=== PATIENT | male | born 1940 ===

== ENCOUNTER 2018-07-24 09:42 | Outpatient (CLI) | payer MEDICARE, MEDICAID | END 2018-07-24 09:43 | disposition home or self-care (01) | LOC: C.RADH 09:42 ==

== ENCOUNTER 2018-08-03 10:27 | Inpatient (IN) | payer MEDICARE, MEDICAID ==
[2018-04-06 12:58] VITALS: BMI 27.4
[2018-08-03] MEDS ORDERED: HYDROmorphone 0.5 mg/0.5 ml ISec IVP PRN ×2 (16:19→19:07)
[2018-08-03] MEDS ORDERED: Lidocaine 2% Jelly (Uro-Jet) ONE (17:33)
[2018-08-03] MEDS ORDERED: Ciprofloxacin 400mg/200ml D5W 400 MG/200 ML BAG IVPB ONE (17:33)
[2018-08-03] MEDS ORDERED: Gentamicin 80 mg in 0.9% NS 160 MG/200 ML BAG IVPB ONE (17:33)
[2018-08-03] MEDS ORDERED: Propofol 10 mg/ml Inj (20 ML) ONE (17:34)
[2018-08-03] MEDS ORDERED: ePHEDrine 50 mg/ml Inj ONE (17:44)
[2018-08-03] MEDS ORDERED: Lactated Ringer's 1,000 ML IV ONE (19:05)
--- NOTE | 2018-08-03 19:12 | PCM.SURG1 ---
Surgeon's Initial Post Op Note - Surgeon's Notes Surgeon: jamey [employer] Gard[employer] Teacher: alis Type of Anesthesia: General LMA Anesthesia Administered By: staff Pre-Operative Diagnosis: Bladder tumor Operative Findings: Large bt Post-Operative Diagnosis: same Operation Performed: TURBT LARGE Specimen/Specimens Removed: TUMOR Estimated Blood Loss: EBL {In ML}: 0 Blood Products Given: N/A Drains Used: No Drains Post-Op Condition: Good Date of Surgery/Procedure: 08/03/18 Time of Surgery/Procedure: 19:11
--- NOTE | 2018-08-03 19:46 | CP.PCM.HP ---
<RisaChristopher - Last Filed: 08/04/18 02:18> History of Present Illness - History of Present Illness History of Present Illness: PGY-1 History and Physical [address] Cheatham Patient is a 77 year old male with PMHx of bladder tumor, HTN, arthritis and depression presenting s/p cystoscopy with TURBT. Patient was here last year after being seen at [facility] where CT scan revealed bladder tumor. Patient was sent for clearance for cystoscopy but never returned. He was referred back recently by new PMD. Patient denies any gross pain or hematuria prior to procedure. Currently in no acute distress. No fevers/chills, headaches, dizziness, chest pain, palpitations, sob, cough, abdominal pain, n/v/d/c, hematuria. Mercado in place draining ~700cc serosanguinous urine. PMHx: bladder tumor, HTN, arthritis, depression PSHx: hernia surgery Allergies: NKDA Home Medications: Flomax 0.4 mg PO daily, Lisinopril/HCTZ 20-12.5 mg 1 tablet PO daily, Lamictal XR 250 mg PO Daily Social Hx: former smoker, quit 10 years ago, denies alcohol or illicit drug use Family Hx: noncontributory PMD: Dr. Raghu Elaine Urology: Dr. Wise Present on Admission - Present on Admission Any Indicators Present on Admission: No Review of Systems - Review of Systems All systems: reviewed and no additional remarkable complaints except Review of Systems: as per HPI - Constitutional Constitutional: absent: Chills, Fever - EENT Eyes: absent: Change in Vision - Cardiovascular Cardiovascular: absent: Chest Pain, Dyspnea, Palpitations - Respiratory Respiratory: absent: Cough, Dyspnea, Wheezing - Gastrointestinal Gastrointestinal: absent: Constipation, Diarrhea, Nausea, Vomiting - Genitourinary Genitourinary: absent: Difficulty Urinating, Dysuria, Flank Pain, Hematuria, Urinary Frequency, Urinary Urgency, Bladder Distension - Musculoskeletal Musculoskeletal: Arthralgias - Neurological Neurological: absent: Dizziness, Numbness, Headaches, Tingling, Weakness - Psychiatric Psychiatric: As Per HPI - Hematologic/Lymphatic Hematologic: As Per HPI Past Patient History - Past Medical History & Family History Past Medical History?: Yes - Past Social History Smoking Status: Former Smoker - CARDIAC Hx Cardiac Disorders: Yes Hx Hypertension: Yes - PULMONARY Hx Respiratory Disorders: No - NEUROLOGICAL Hx Neurological Disorder: No - HEENT Hx HEENT Problems: Yes 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") - RENAL Hx Chronic Kidney Disease: No - ENDOCRINE/METABOLIC Hx Endocrine Disorders: No - HEMATOLOGICAL/ONCOLOGICAL Hx Blood Disorders: No - INTEGUMENTARY Hx Dermatological Problems: No - MUSCULOSKELETAL/RHEUMATOLOGICAL Hx Musculoskeletal Disorders: Yes Hx Arthritis: Yes Hx Unsteady Gait: Yes ("AT TIMES USES CANE/WALKER.") - GASTROINTESTINAL Hx Gastrointestinal Disorders: No - GENITOURINARY/GYNECOLOGICAL Hx Genitourinary Disorders: Yes Other/Comment: HX: BLADDER TUMOR - PSYCHIATRIC Hx Psychophysiologic Disorder: Yes Hx Depression: Yes - SURGICAL HISTORY Hx Surgeries: Yes Hx Herniorrhaphy: Yes ((PER MD'S NOTES) SON NOT SURE.) - ANESTHESIA Hx Anesthesia: Yes Hx Anesthesia Reactions: No Hx Malignant Hyperthermia: No Meds Allergies/Adverse Reactions: Allergies Allergy/AdvReac Type Severity Reaction Status Date / Time No Known Allergies Allergy Verified 07/28/18 08:07 Physical Exam - Constitutional Appears: Non-toxic, No Acute Distress - Head Exam Head Exam: ATRAUMATIC, NORMAL INSPECTION, NORMOCEPHALIC - Eye Exam Eye Exam: EOMI, Normal appearance Pupil Exam: NORMAL ACCOMODATION - ENT Exam ENT Exam: Mucous Membranes Moist, Normal Exam - Neck Exam Neck exam: Positive for: Full Rom, Normal Inspection. Negative for: Tenderness - Respiratory Exam Respiratory Exam: Clear to Auscultation Bilateral, NORMAL BREATHING PATTERN. absent: Accessory Muscle Use, Rales, Rhonchi, Wheezes, Respiratory Distress, Stridor - Cardiovascular Exam Cardiovascular Exam: REGULAR RHYTHM, +S1, +S2 - GI/Abdominal Exam GI & Abdominal Exam: Normal Bowel Sounds, Soft. absent: Distended, Firm, Guarding, Rebound, Rigid, Tenderness - Exam Exam: absent: Scrotal Swelling, Testicular Tenderness Additional comments: mercado catheter in place draining ~700cc serosanguinous urine - Extremities Exam Extremities exam: Positive for: normal capillary refill, normal inspection, pedal pulses present. Negative for: calf tenderness, pedal edema - Back Exam Back exam: NORMAL INSPECTION - Neurological Exam Neurological exam: Alert, Oriented x3 - Skin Skin Exam: Dry, Intact, Normal Color, Warm Results - Vital Signs Recent Vital Signs: Last Vital Signs Temp 97.3 F L 08/03/18 11:35 Pulse 75 08/03/18 11:35 Resp 18 08/03/18 11:35 BP 127/75 08/03/18 11:35 Pulse Ox 97 08/03/18 11:35 Assessment & Plan - Assessment and Plan (Free Text) Assessment: 77 year old M with pmhx of HTN, bladder tumor, arthritis, depression presenting s/p cystoscopy with TURBT. Plan: Bladder Tumor s/p cystoscopy with TURBT -morning labs -Urology (Dr. Wise) on board; recs appreciated -start cipro 400 mg IVPB q12h -NS @ 100cc/hr -Morphine 1 mg IVPB q4 prn for pain -Morphine 2 mg IVPB Q4 prn for pain -c/w home flomax 0.4 mg PO daily HTN -restart home med -Lisinopril 20 mg PO daily -HCTZ 12.5 mg PO daily PPx, Diet, Disposition -DVT ppx: scds -Diet: Regular diet -PT on board Case discussed with Dr. Chaparrita Lord DO, PGY-1 <Cheikh Cheatham - Last Filed: 08/04/18 06:45> Results - Vital Signs Recent Vital Signs: Last Vital Signs Temp 97.9 F 08/03/18 23:22 Pulse 102 H 08/03/18 23:22 Resp 22 08/03/18 23:22 BP 118/69 08/03/18 23:22 Pulse Ox 96 08/03/18 23:22 Assessment & Plan - Date & Time Date: 08/04/18 (I have seen and examined the patient. I agree with the findings and plan of care as documented by Dr. Lord. Patient s/p cystoscopy. Consult to urology. Cipro. Symptomatic treatment. History of hypertension. Monitor and continue home meds when appropriate. Monitor for acute changes.) Time: 06:43 Attending/Attestation - Attestation I have personally seen and examined this patient.: Yes I have fully participated in the care of the patient.: Yes I have reviewed all pertinent clinical information: Yes
[2018-08-04] MEDS: Sodium Chloride 0.9% 1,000 ML IV SCH ×3 (00:35→22:00)
[2018-08-04] MEDS: Ciprofloxacin 400mg/200ml D5W 400 MG/200 ML BAG IVPB SCH ×2 (05:12→17:03)
--- NOTE | 2018-08-04 06:25 | OP ---
PROCEDURE DATE: 08/03/2018 PREOPERATIVE DIAGNOSIS: Bladder mass. POSTOPERATIVE DIAGNOSIS: Large bladder tumor. PROCEDURE: Transurethral resection of bladder tumor, large. DESCRIPTION OF PROCEDURE: Prior to the procedure, the patient was asked to sign a detailed informed consent. He is all aware of the risks, complications, and limitations of this procedure. He is aware that there is a suspicion of neoplasm. He agreed to the procedure and was willing to accept the risks, and he was brought into the room. Time-out was taken according to the rules and regulations of [facility]. He was draped and prepped in the usual manner \. He received prophylactic antibiotics. He was cystoscoped with #21 Storz panendoscope. The membranes and urethra which were normal. The prostatic urethra showed moderate bladder outlet obstruction. The bladder was emptied atraumatically. There was a large bladder tumor on the right side of the bladder, above and lateral to the right ureteral orifice. The tumor was resected from its periphery. After the tumor was resected, it was clear there was a heavy trabeculation of the bladder. Hemostasis was achieved, however, we felt that a Briseno catheter was necessary. The tumor was evacuated and glass syringe and #24 three-way 30 cc hematuria catheter was inserted. Irrigation was begun and was clear. It was elected to admit the patient to the hospital. Discussed the case with the hospitalist. Jorge Luis Wise MD YARA
[2018-08-04 08:26] VITALS: RESP 20
[2018-08-04 08:39] LABS: BASO % 0.1 % (0.0-2.0); LYMPH # 1.2 K/uL (1.0-4.3); LYMPH % 14.7 % (20.0-40.0); MEAN CELL VOLUME 96.9 fL (80.0-94.0); MEAN CORPUSCULAR HEMOGLOBIN 33.6 pg (27.0-31.0); MEAN CORPUSCULAR HGB CONC 34.7 g/dL (33.0-37.0); MEAN PLATELET VOLUME 9.9 fL (7.2-11.7); MONO # 0.7 K/uL (0.0-0.8); MONO % 9.1 % (0.0-10.0); NEUT % 76.1 % (50.0-75.0); RBC 3.88 Mil/uL (4.40-5.90); RED CELL DISTRIBUTION WIDTH 12.3 % (11.5-14.5); WHITE BLOOD COUNT 7.9 K/uL (4.8-10.8)
[2018-08-04 09:14] LABS: ALB/GLOB RATIO 1.5 (1.0-2.1); ALBUMIN 4.4 g/dL (3.5-5.0); ALT/SGPT 26 U/L (21-72); AST/SGOT 28 U/L (17-59); BLOOD UREA NITROGEN 24 mg/dL (9-20); CALCIUM 8.5 mg/dl (8.6-10.4); GFR NON-AFRICAN AMERICAN > 60
--- NOTE | 2018-08-04 11:44 | CP.PCM.PN ---
Subjective - Date & Time of Evaluation Date of Evaluation: 08/04/18 Time of Evaluation: 11:41 - Subjective Subjective: note . Pt confused vital signs wnl. Urine is clear. Good surgical result ? etiology of confusion unclear. P dc cbi labs will discuss alex Wise Objective - Vital Signs/Intake and Output Vital Signs (last 24 hours): Temp Pulse Resp BP Pulse Ox 97.3 F L 106 H 20 126/65 99 08/04/18 08:26 08/04/18 08:26 08/04/18 08:26 08/04/18 08:26 08/04/18 08:26 Intake and Output: 08/04/18 08/04/18 06:59 18:59 Intake Total 6800 Output Total 7850 Balance -1050 - Medications Medications: Current Medications Hydrochlorothiazide (Microzide) 12.5 mg PO DAILY [facility] Last Admin: 08/04/18 10:00 Dose: Not Given Ciprofloxacin (Cipro 400mg/200ml Dsw) 400 mg in 200 mls @ 133 mls/hr IVPB Q12H [facility]; Protocol Last Admin: 08/04/18 05:12 Dose: 133 mls/hr Sodium Chloride (Sodium Chloride 0.9%) 1,000 mls @ 100 mls/hr IV .Q10H [facility] Last Admin: 08/04/18 00:35 Dose: 100 mls/hr Lisinopril (Zestril) 20 mg PO DAILY [facility] Last Admin: 08/04/18 10:00 Dose: Not Given Morphine Sulfate (Morphine) 1 mg IVP Q4 PRN PRN Reason: Pain, moderate (4-7) Last Admin: 08/04/18 00:35 Dose: 1 mg Morphine Sulfate (Morphine) 2 mg IVP Q4 PRN PRN Reason: Pain, moderate (4-7) Tamsulosin HCl (Flomax) 0.4 mg PO DAILY [facility] Last Admin: 08/04/18 10:00 Dose: Not Given - Labs Labs: 08/04/18 08:26 08/04/18 08:26
--- NOTE | 2018-08-04 14:34 | CP.PCM.PN ---
<Arvind Su - Last Filed: 08/04/18 14:31> Subjective - Date & Time of Evaluation Date of Evaluation: 08/04/18 Time of Evaluation: 14:36 - Subjective Subjective: PGY-[address] Means Patient seen and examined at bedside. Patient found to be altered today, thought likely due to medication. Offending meds have been stopped. Otherwise, patient is clinically stable. ROS negative, but will follow up when patient back to mental baseline. Objective - Vital Signs/Intake and Output Vital Signs (last 24 hours): Temp Pulse Resp BP Pulse Ox 97.3 F L 106 H 20 126/65 99 08/04/18 08:26 08/04/18 13:41 08/04/18 08:26 08/04/18 08:26 08/04/18 13:41 Intake and Output: 08/04/18 08/04/18 06:59 18:59 Intake Total 6800 Output Total 7850 Balance -1050 - Medications Medications: Current Medications Acetaminophen (Tylenol 325mg Tab) 650 mg PO Q6 PRN PRN Reason: Pain, Mild (1-3) Hydrochlorothiazide (Microzide) 12.5 mg PO DAILY [facility] Last Admin: 08/04/18 10:00 Dose: Not Given Ciprofloxacin (Cipro 400mg/200ml Dsw) 400 mg in 200 mls @ 133 mls/hr IVPB Q12H [facility]; Protocol Last Admin: 08/04/18 05:12 Dose: 133 mls/hr Sodium Chloride (Sodium Chloride 0.9%) 1,000 mls @ 100 mls/hr IV .Q10H [facility] Last Admin: 08/04/18 00:35 Dose: 100 mls/hr Lisinopril (Zestril) 20 mg PO DAILY [facility] Last Admin: 08/04/18 10:00 Dose: Not Given Morphine Sulfate (Morphine) 1 mg IVP Q4 PRN PRN Reason: Pain, moderate (4-7) Last Admin: 08/04/18 00:35 Dose: 1 mg Morphine Sulfate (Morphine) 2 mg IVP Q4 PRN PRN Reason: Pain, moderate (4-7) Tamsulosin HCl (Flomax) 0.4 mg PO DAILY [facility] Last Admin: 08/04/18 10:00 Dose: Not Given - Labs Labs: 08/04/18 08:26 08/04/18 08:26 - Constitutional Appears: Non-toxic, No Acute Distress - Head Exam Head Exam: ATRAUMATIC, NORMOCEPHALIC - Eye Exam Eye Exam: EOMI Additional comments: Arcus sinilus b/l, L cataract noted - ENT Exam ENT Exam: Mucous Membranes Moist - Respiratory Exam Respiratory Exam: Clear to Ausculation Bilateral, NORMAL BREATHING PATTERN. absent: Rhonchi, Wheezes - Cardiovascular Exam Cardiovascular Exam: REGULAR RHYTHM, +S1, +S2 - GI/Abdominal Exam GI & Abdominal Exam: Soft, Normal Bowel Sounds. absent: Tenderness - Extremities Exam Extremities Exam: absent: Pedal Edema, Tenderness - Neurological Exam Neurological Exam: Alert, Awake. absent: Oriented x3 (Oriented to self and time) - Psychiatric Exam Psychiatric exam: Agitated - Skin Skin Exam: Dry, Intact Assessment and Plan - Assessment and Plan (Free Text) Assessment: 77 year old M with pmhx of HTN, bladder tumor, arthritis, depression presenting s/p cystoscopy with TURBT. Plan: Bladder Tumor s/p cystoscopy with TURBT -morning labs -Urology (Dr. Wise) on board; recs appreciated -start cipro 400 mg IVPB q12h -NS @ 100cc/hr -c/w home flomax 0.4 mg PO daily -Tylenol 650mg PO Q6 prn for pain (morphine d/c'd 2/2 delerium, see below) Acute Delerium -Patient found to be AOx2 this AM, believing he was in his mother's house. Patient had been given stat Ativan doses for increasing agitation, so we will cease giving ativan. -PRN morphine discontinued, PRN tylenol Q6 for pain HTN -Lisinopril 20 mg PO daily -HCTZ 12.5 mg PO daily PPx, Diet, Disposition -DVT ppx: scds -Diet: Regular diet -PT on board Case discussed with Dr. Clary Su DO, PGY-1 <Nadja Means V - Last Filed: 08/05/18 00:58> Objective - Vital Signs/Intake and Output Vital Signs (last 24 hours): Temp Pulse Resp BP Pulse Ox 98.2 F 97 H 20 136/78 95 08/04/18 15:00 08/04/18 15:00 08/04/18 15:00 08/04/18 15:00 08/04/18 15:00 Intake and Output: 08/04/18 08/05/18 18:59 06:59 Intake Total 8800 Output Total 9400 Balance -600 - Medications Medications: Current Medications Acetaminophen (Tylenol 325mg Tab) 650 mg PO Q6 PRN PRN Reason: Pain, Mild (1-3) Hydrochlorothiazide (Microzide) 12.5 mg PO DAILY [facility] Last Admin: 08/04/18 10:00 Dose: Not Given Ciprofloxacin (Cipro 400mg/200ml Dsw) 400 mg in 200 mls @ 133 mls/hr IVPB Q12H [facility]; Protocol Last Admin: 08/04/18 17:03 Dose: 133 mls/hr Sodium Chloride (Sodium Chloride 0.9%) 1,000 mls @ 100 mls/hr IV .Q10H [facility] Last Admin: 08/04/18 22:00 Dose: 100 mls/hr Lisinopril (Zestril) 20 mg PO DAILY [facility] Last Admin: 08/04/18 10:00 Dose: Not Given Morphine Sulfate (Morphine) 1 mg IVP Q4 PRN PRN Reason: Pain, moderate (4-7) Last Admin: 08/04/18 00:35 Dose: 1 mg Morphine Sulfate (Morphine) 2 mg IVP Q4 PRN PRN Reason: Pain, moderate (4-7) Tamsulosin HCl (Flomax) 0.4 mg PO DAILY [facility] Last Admin: 08/04/18 10:00 Dose: Not Given - Labs Labs: 08/04/18 08:26 08/04/18 08:26 Attending/Attestation - Attestation I have personally seen and examined this patient.: Yes I have fully participated in the care of the patient.: Yes I have reviewed all pertinent clinical information, including history, physical exam and plan: Yes Notes (Text): Patient seen, examined and case discussed with day-time resident. Patient seen with his daughter at bedside. She reports dad is confused, calls her by her grandmother's name which she bares no likeness to and she is for quite sometime. Discussed with urology concerned for patient's confusion in light of recent procedure, will hold off removal of mercado until patient is better oriented. D/c patient's morphine and per review of EMR, patient has receive two doses of Ativan 0.5mg IV during the night/day which may also be contributing. CT head was ordered noting nonspecific white changes but no acute findings. Will place order for PT/OT eval and OOB Continue to monitor labs. Bladder Tumor s/p cystoscopy with TURBT -morning labs -Urology (Dr. Wise) on board; recs appreciated -c/w cipro 400 mg IVPB q12h -NS @ 100cc/hr -c/w home flomax 0.4 mg PO daily -Tylenol 650mg PO Q6 prn for pain (morphine d/c'd 08/22 delerium, see below) Urology noted held off removal of mercado until mental status improves Acute Delirium -Patient found to be AOx2 this AM, believing he was in his mother's house. Patient had been given stat Ativan doses for increasing agitation, so we will cease giving ativan and narcotic pain medication -PRN morphine discontinued, PRN tylenol Q6 for pain - CT head negative for acute findings HTN -Lisinopril 20 mg PO daily -HCTZ 12.5 mg PO daily PPx, Diet, Disposition -DVT ppx: scds -Diet: Regular diet -PT on board
--- NOTE | 2018-08-04 14:51 | CT ---
Date of service: 08/04/2018 PROCEDURE: CT HEAD WITHOUT CONTRAST. HISTORY: confusion COMPARISON: None available. TECHNIQUE: Axial computed tomography images were obtained through the head/brain without intravenous contrast. Radiation dose: Total exam DLP = 1148.16 mGy-cm. This CT exam was performed using one or more of the following dose reduction techniques: Automated exposure control, adjustment of the mA and/or kV according to patient size, and/or use of iterative reconstruction technique. FINDINGS: HEMORRHAGE: No intracranial hemorrhage. BRAIN: Diffuse atrophy with prominence of the ventricles and sulci noted. No mass effect or edema. Intracranial atherosclerosis. Scattered periventricular and subcortical white matter hypodensities, which are nonspecific, but often seen with chronic microvascular ischemic disease. Please note that MRI with diffusion imaging is more sensitive in the detection of acute ischemic event. VENTRICLES: No hydrocephalus. CALVARIUM: Unremarkable. PARANASAL SINUSES: Unremarkable as visualized. No significant inflammatory changes. MASTOID AIR CELLS: Unremarkable as visualized. No inflammatory changes. OTHER FINDINGS: None. IMPRESSION: Nonspecific white matter changes.
[2018-08-05] MEDS: Ciprofloxacin 400mg/200ml D5W 400 MG/200 ML BAG IVPB SCH ×2 (05:09→17:36)
[2018-08-05] MEDS: Sodium Chloride 0.9% 1,000 ML IV SCH ×3 (06:22→16:15)
[2018-08-05 08:42] LABS: BASO % 0.1 % (0.0-2.0); EOS % 0.6 % (0.0-4.0); HEMOGLOBIN 12.3 g/dL (12.0-18.0); LYMPH # 1.6 K/uL (1.0-4.3); LYMPH % 21.2 % (20.0-40.0); MEAN CELL VOLUME 96.5 fL (80.0-94.0); MEAN CORPUSCULAR HEMOGLOBIN 33.9 pg (27.0-31.0); MEAN CORPUSCULAR HGB CONC 35.1 g/dL (33.0-37.0); MONO # 1.1 K/uL (0.0-0.8); MONO % 15.2 % (0.0-10.0); NEUT # 4.6 K/uL (1.8-7.0); NEUT % 62.9 % (50.0-75.0); RBC 3.64 Mil/uL (4.40-5.90); RED CELL DISTRIBUTION WIDTH 12.6 % (11.5-14.5); WHITE BLOOD COUNT 7.4 K/uL (4.8-10.8)
--- NOTE | 2018-08-05 08:59 | CP.PCM.PN ---
Subjective - Date & Time of Evaluation Date of Evaluation: 08/05/18 Time of Evaluation: 08:55 - Subjective Subjective: Pt aao3 today ,urine clear mercado removed suggest encourge fluids. Pt may be discharged today if voids, discussed with hospatilist. Pt should follow up in my office in 1 week and be discharged on cipro 500 bid x5 days. Billie Objective - Vital Signs/Intake and Output Vital Signs (last 24 hours): Temp Pulse Resp BP Pulse Ox 98.0 F 79 20 111/68 95 08/05/18 07:00 08/05/18 07:00 08/05/18 07:00 08/05/18 07:00 08/05/18 07:00 Intake and Output: 08/05/18 08/05/18 06:59 18:59 Intake Total 1000 Output Total 900 Balance 100 - Medications Medications: Current Medications Acetaminophen (Tylenol 325mg Tab) 650 mg PO Q6 PRN PRN Reason: Pain, Mild (1-3) Hydrochlorothiazide (Microzide) 12.5 mg PO DAILY [facility] Last Admin: 08/04/18 10:00 Dose: Not Given Sodium Chloride (Sodium Chloride 0.9%) 1,000 mls @ 100 mls/hr IV .Q10H [facility] Last Admin: 08/05/18 06:22 Dose: Not Given Lisinopril (Zestril) 20 mg PO DAILY [facility] Last Admin: 08/04/18 10:00 Dose: Not Given Morphine Sulfate (Morphine) 1 mg IVP Q4 PRN PRN Reason: Pain, moderate (4-7) Last Admin: 08/04/18 00:35 Dose: 1 mg Morphine Sulfate (Morphine) 2 mg IVP Q4 PRN PRN Reason: Pain, moderate (4-7) Tamsulosin HCl (Flomax) 0.4 mg PO DAILY [facility] Last Admin: 08/04/18 10:00 Dose: Not Given - Labs Labs: 08/05/18 08:31 08/04/18 08:26
[2018-08-05 09:18] LABS: ALB/GLOB RATIO 1.4 (1.0-2.1); ALBUMIN 3.9 g/dL (3.5-5.0); ALT/SGPT 21 U/L (21-72); AST/SGOT 31 U/L (17-59); BLOOD UREA NITROGEN 12 mg/dL (9-20); CALCIUM 8.5 mg/dl (8.6-10.4); GFR NON-AFRICAN AMERICAN > 60
[2018-08-05] MEDS ORDERED: Ciprofloxacin 400mg/200ml D5W 400 MG/200 ML BAG IVPB SCH (09:45)
[2018-08-05] MEDS ORDERED: Simethicone 80 mg Chewtab PO PRN (12:04)
[2018-08-05] MEDS ORDERED: Bisacodyl 5mg EC Tab PO ONE (12:15)
--- NOTE | 2018-08-05 15:08 | CP.PCM.PN ---
Subjective - Date & Time of Evaluation Date of Evaluation: 08/05/18 Time of Evaluation: 15:22 - Subjective Subjective: PGY-[address] Means Patient seen and examined at bedside. No acute events overnight. Patient not acting delirious today- he is calling his daughters by the correct names and is A&O x3. Briseno removed earlier. He did have to be catheterized for urinary retention. Patient denies fevers, chills, n/v/d/c, flank pain, abdominal pain. Objective - Vital Signs/Intake and Output Vital Signs (last 24 hours): Temp Pulse Resp BP Pulse Ox 98.0 F 86 20 142/78 95 08/05/18 07:00 08/05/18 10:40 08/05/18 07:00 08/05/18 10:40 08/05/18 07:00 Intake and Output: 08/05/18 08/05/18 06:59 18:59 Intake Total 1000 Output Total 900 Balance 100 - Medications Medications: Current Medications Acetaminophen (Tylenol 325mg Tab) 650 mg PO Q6 PRN PRN Reason: Pain, Mild (1-3) Docusate Sodium (Colace) 100 mg PO BID [facility] Hydrochlorothiazide (Microzide) 12.5 mg PO DAILY [facility] Last Admin: 08/05/18 10:41 Dose: 12.5 mg Sodium Chloride (Sodium Chloride 0.9%) 1,000 mls @ 100 mls/hr IV .Q10H [facility] Last Admin: 08/05/18 11:38 Dose: 100 mls/hr Ciprofloxacin (Cipro 400mg/200ml Dsw) 400 mg in 200 mls @ 133 mls/hr IVPB Q12H [facility]; Protocol Lisinopril (Zestril) 20 mg PO DAILY [facility] Last Admin: 08/05/18 10:41 Dose: 20 mg Morphine Sulfate (Morphine) 1 mg IVP Q4 PRN PRN Reason: Pain, moderate (4-7) Last Admin: 08/04/18 00:35 Dose: 1 mg Morphine Sulfate (Morphine) 2 mg IVP Q4 PRN PRN Reason: Pain, moderate (4-7) Simethicone (Mylicon Chew Tab) 80 mg PO QID PRN PRN Reason: GI distress Tamsulosin HCl (Flomax) 0.4 mg PO DAILY [facility] Last Admin: 08/05/18 10:41 Dose: 0.4 mg - Labs Labs: 08/05/18 08:31 08/05/18 08:31 - Constitutional Appears: Non-toxic, No Acute Distress - Head Exam Head Exam: ATRAUMATIC, NORMOCEPHALIC - Eye Exam Eye Exam: EOMI - ENT Exam ENT Exam: Mucous Membranes Moist - Respiratory Exam Respiratory Exam: Clear to Ausculation Bilateral, NORMAL BREATHING PATTERN. absent: Rhonchi, Wheezes - Cardiovascular Exam Cardiovascular Exam: REGULAR RHYTHM, +S1, +S2 - GI/Abdominal Exam GI & Abdominal Exam: Soft, Normal Bowel Sounds. absent: Tenderness - Exam Additional comments: Briseno removed. No blood present at urethral meatus. - Extremities Exam Extremities Exam: absent: Pedal Edema, Tenderness - Neurological Exam Neurological Exam: Alert, Awake, Oriented x3 - Psychiatric Exam Psychiatric exam: Normal Affect, Normal Mood - Skin Skin Exam: Dry, Intact Assessment and Plan - Assessment and Plan (Free Text) Assessment: 77 year old M with pmhx of HTN, bladder tumor, arthritis, depression presenting s/p cystoscopy with TURBT. Plan to d/c once patient voids. Plan: Bladder Tumor s/p cystoscopy with TURBT -morning labs -Urology (Dr. Wise) on board; recs appreciated -start cipro 400 mg IVPB q12h -NS @ 100cc/hr -c/w home flomax 0.4 mg PO daily -Tylenol 650mg PO Q6 prn for pain (morphine d/c'd 2/2 delerium, see below) -Per Dr. Wise, patient to be discharged once he voids. However, patient was retaining urine today and required urinary catheterization, per nursing. We will continue to follow. Constipation -Colace 100 BID -Simethicone 80 QID -Dulcolax PO 5mg given once. Acute Delerium -Patient found to be AOx2 this AM, believing he was in his mother's house. Patient had been given stat Ativan doses for increasing agitation, so we will cease giving ativan. -PRN morphine discontinued, PRN tylenol Q6 for pain -Head CT 08/04: Nonspecific white matter changes HTN -Lisinopril 20 mg PO daily -HCTZ 12.5 mg PO daily PPx, Diet, Disposition -DVT ppx: scds -Diet: Regular diet -PT on board Case discussed with Dr. Clary Su DO, PGY-1
[2018-08-06] MEDS: Ciprofloxacin 400mg/200ml D5W 400 MG/200 ML BAG IVPB SCH (05:09)
[2018-08-06 07:53] LABS: BASO % 0.4 % (0.0-2.0); EOS # 0.1 K/uL (0.0-0.7); EOS % 1.6 % (0.0-4.0); HEMOGLOBIN 12.1 g/dL (12.0-18.0); LYMPH # 1.9 K/uL (1.0-4.3); LYMPH % 24.9 % (20.0-40.0); MEAN CELL VOLUME 95.7 fL (80.0-94.0); MEAN CORPUSCULAR HEMOGLOBIN 33.7 pg (27.0-31.0); MEAN CORPUSCULAR HGB CONC 35.2 g/dL (33.0-37.0); MEAN PLATELET VOLUME 9.8 fL (7.2-11.7); MONO # 0.9 K/uL (0.0-0.8); MONO % 12.6 % (0.0-10.0); NEUT # 4.5 K/uL (1.8-7.0); NEUT % 60.5 % (50.0-75.0); RBC 3.59 Mil/uL (4.40-5.90); RED CELL DISTRIBUTION WIDTH 12.4 % (11.5-14.5); WHITE BLOOD COUNT 7.5 K/uL (4.8-10.8)
[2018-08-06 08:10] LABS: ALB/GLOB RATIO 1.3 (1.0-2.1); ALBUMIN 3.7 g/dL (3.5-5.0); ALT/SGPT 24 U/L (21-72); AST/SGOT 32 U/L (17-59); BLOOD UREA NITROGEN 10 mg/dL (9-20); CALCIUM 8.5 mg/dl (8.6-10.4); GFR NON-AFRICAN AMERICAN > 60
[2018-08-06 08:46] VITALS: BP 107/61; PULSE 75; TEMP 98.3; O2SAT 95
--- NOTE | 2018-08-06 09:27 | CP.PCM.PN ---
Subjective - Date & Time of Evaluation Date of Evaluation: 08/06/18 Time of Evaluation: 09:25 - Subjective Subjective: note urine clear pt aao3, ox for discharge urologically. Pt should FU my office wensday at 12 noon for mercado removal. ARASH Objective - Vital Signs/Intake and Output Vital Signs (last 24 hours): Temp Pulse Resp BP Pulse Ox 98.3 F 75 20 107/61 95 08/06/18 08:00 08/06/18 08:00 08/06/18 08:00 08/06/18 08:00 08/06/18 08:00 Intake and Output: 08/06/18 08/06/18 06:59 18:59 Intake Total 1850 Output Total 800 1300 Balance 1050 -1300 - Medications Medications: Current Medications Acetaminophen (Tylenol 325mg Tab) 650 mg PO Q6 PRN PRN Reason: Pain, Mild (1-3) Docusate Sodium (Colace) 100 mg PO BID [facility] Last Admin: 08/05/18 17:36 Dose: 100 mg Hydrochlorothiazide (Microzide) 12.5 mg PO DAILY [facility] Last Admin: 08/05/18 10:41 Dose: 12.5 mg Sodium Chloride (Sodium Chloride 0.9%) 1,000 mls @ 100 mls/hr IV .Q10H [facility] Last Admin: 08/05/18 16:15 Dose: Not Given Ciprofloxacin (Cipro 400mg/200ml Dsw) 400 mg in 200 mls @ 133 mls/hr IVPB Q12H [facility]; Protocol Last Admin: 08/06/18 05:09 Dose: 133 mls/hr Lisinopril (Zestril) 20 mg PO DAILY [facility] Last Admin: 08/05/18 10:41 Dose: 20 mg Morphine Sulfate (Morphine) 1 mg IVP Q4 PRN PRN Reason: Pain, moderate (4-7) Last Admin: 08/04/18 00:35 Dose: 1 mg Morphine Sulfate (Morphine) 2 mg IVP Q4 PRN PRN Reason: Pain, moderate (4-7) Simethicone (Mylicon Chew Tab) 80 mg PO QID PRN PRN Reason: GI distress Tamsulosin HCl (Flomax) 0.4 mg PO DAILY [facility] Last Admin: 08/05/18 10:41 Dose: 0.4 mg - Labs Labs: 08/06/18 07:43 08/06/18 07:43
--- NOTE | 2018-08-06 10:17 | CP.PCM.DIS ---
Provider - Provider Date of Admission: 08/03/18 19:18 Attending physician: Silvestre Hanson MD Consults: 08/03/18 21:53 Urology Consult Routine Comment: Consulting Provider: Jorge Luis Wise Jr. Consulting Physician: Jorge Luis Wise Jr. Reason for Consult: s/p cystoscopy with TURBT Time Spent in preparation of Discharge (in minutes): 45 Hospital Course - Lab Results Lab Results: Most Recent Lab Values WBC 7.5 K/uL (4.8-10.8) 08/06/18 07:43 RBC 3.59 Mil/uL (4.40-5.90) L 08/06/18 07:43 Hgb 12.1 g/dL (12.0-18.0) 08/06/18 07:43 Hct 34.3 % (35.0-51.0) L 08/06/18 07:43 MCV 95.7 fL (80.0-94.0) H 08/06/18 07:43 MCH 33.7 pg (27.0-31.0) H 08/06/18 07:43 MCHC 35.2 g/dL (33.0-37.0) 08/06/18 07:43 RDW 12.4 % (11.5-14.5) 08/06/18 07:43 Plt Count 123 K/uL (130-400) L 08/06/18 07:43 MPV 9.8 fL (7.2-11.7) 08/06/18 07:43 Neut % (Auto) 60.5 % (50.0-75.0) 08/06/18 07:43 Lymph % (Auto) 24.9 % (20.0-40.0) 08/06/18 07:43 [place] % (Auto) 12.6 % (0.0-10.0) H 08/06/18 07:43 Eos % (Auto) 1.6 % (0.0-4.0) 08/06/18 07:43 Baso % (Auto) 0.4 % (0.0-2.0) 08/06/18 07:43 Neut # (Auto) 4.5 K/uL (1.8-7.0) 08/06/18 07:43 Lymph # (Auto) 1.9 K/uL (1.0-4.3) 08/06/18 07:43 [place] # (Auto) 0.9 K/uL (0.0-0.8) H 08/06/18 07:43 Eos # (Auto) 0.1 K/uL (0.0-0.7) 08/06/18 07:43 Baso # (Auto) 0.0 K/uL (0.0-0.2) 08/06/18 07:43 Differential Comment 08/05/18 08:31 Sodium 135 mmol/L (132-148) 08/06/18 07:43 Potassium 3.5 mmol/L (3.6-5.2) L 08/06/18 07:43 Chloride 99 mmol/L (98-107) 08/06/18 07:43 Carbon Dioxide 29 mmol/L (22-30) 08/06/18 07:43 Anion Gap 10 (10-20) 08/06/18 07:43 BUN 10 mg/dL (9-20) 08/06/18 07:43 Creatinine 0.7 mg/dL (0.8-1.5) L 08/06/18 07:43 Est GFR ( Amer) > 60 08/06/18 07:43 Est GFR (Non-Af Amer) > 60 08/06/18 07:43 Random Glucose 128 mg/dL (75-110) H 08/06/18 07:43 Hemoglobin A1c 5.9 % (4.2-6.5) 08/04/18 08:26 Calcium 8.5 mg/dl (8.6-10.4) L 08/06/18 07:43 Phosphorus 2.8 mg/dL (2.5-4.5) 08/06/18 07:43 Magnesium 1.6 mg/dL (1.6-2.3) 08/06/18 07:43 Total Bilirubin 1.0 mg/dL (0.2-1.3) 08/06/18 07:43 AST 32 U/L (17-59) 08/06/18 07:43 ALT 24 U/L (21-72) 08/06/18 07:43 Alkaline Phosphatase 47 U/L (38-126) 08/06/18 07:43 Total Protein 6.7 g/dL (6.3-8.3) 08/06/18 07:43 Albumin 3.7 g/dL (3.5-5.0) 08/06/18 07:43 Globulin 2.9 gm/dL (2.2-3.9) 08/06/18 07:43 Albumin/Globulin Ratio 1.3 (1.0-2.1) 08/06/18 07:43 - Hospital Course Hospital Course: Initial HPI Patient is a 77 year old male with PMHx of bladder tumor, HTN, arthritis and depression presenting s/p cystoscopy with TURBT. Patient was here last year after being seen at [facility] ED where CT scan revealed bladder tumor. Patient was sent for clearance for cystoscopy but never returned. He was referred back recently by new PMD. Patient denies any gross pain or hematuria prior to procedure. Currently in no acute distress. No fevers/chills, headaches, dizziness, chest pain, palpitations, sob, cough, abdominal pain, n/v/d/c, hematuria. Mercado in place draining ~700cc serosanguinous urine. Hospital Course Patient was hospitalized for transurethral resection of a bladder tumor with urology and for post-op care. Patient is status-post TURBT wit Dr. Wise on 08/03 which was without complications. Patient was admitted to general medical floors for post-op monitoring and management of chronic medical conditions. Patient was restarted on home meds for HTN and maintained on IV fluids and advanced to a regular diet with prn morphine for pain management. On post-op day #1, patient was noted to have altered mental status/confusion. PRN morphine was removed, and also of note, patient had been given one-time doses of ativan for agitation, and so ativan was stopped. On POD #2, patient had returned to baseline mental status. CT head was negative for any acute changes. He was cleared for discharge per urology pending voluntary voiding, however he was retaining urine and required placement of mercado catheter. Patient has been cleared for discharge with mercado catheter in place, to be removed by Dr. Wise in his office on Saturday 08/12 Imaging -Head CT 08/04: Nonspecific white matter changes This is only a summary this patient's hospital course. For details please refer to complete medical records. Discharge Exam - Head Exam Head Exam: ATRAUMATIC, NORMOCEPHALIC Discharge Plan - Discharge Medications Prescriptions: Ciprofloxacin HCl [Cipro] 250 mg PO BID #10 tab Lamotrigine [Lamictal Xr] 250 mg PO DAILY #30 tab.er.24 Lisinopril/Hydrochlorothiazide [Lisinopril-Hctz 20-12.5 mg Tab] 1 each PO DAILY #30 tablet Tamsulosin [Flomax] 0.4 mg PO DAILY #30 cap - Follow Up Plan Condition: GOOD Disposition: HOME/ ROUTINE Additional Instructions: Patient is cleared for discharge per Dr. Means Patient should continue taking the following medications: -Flomax 0.4 mg one tab by mouth daily at 8am -Lisinopril/HCTZ 20-12.5 mg one tab by mouth daily at 8am -Lamictal 250 mg one tab by mouth daily at 8am -Cipro 250 mg one tab by mouth two times per day at 8am and 8pm for 5 days Please make sure to follow up with Dr. Wise in his office on Friday at 12:00 PM. Please also make sure to make an appointment with Dr. Elaine for medical management. Please return to ER if symptoms recur or worsen.
[2018-08-06] MEDS ORDERED: Potassium Chloride 20 mEq/15 ml LIQ UD PO ONE (10:30)
[2018-08-06] MEDS: Sodium Chloride 0.9% 1,000 ML IV SCH (13:46)
== END 2018-08-06 17:30 | disposition home or self-care (01) | DRG 670 ==
LOC: C.SDS 10:27 → C.9S 19:18 → C.5S 22:27
PROVIDERS: ADMIT Family Medicine; ATTEND Family Medicine
PROC: 0TBB8ZZ Excision of Bladder, Via Natural or Artificial Opening Endoscopic (ICD-10-PCS; principal; 2018-08-03 16:00)
DX: C67.9 Malignant neoplasm of bladder, unspecified (principal); N32.0 Bladder-neck obstruction; R41.82 Altered mental status, unspecified; T40.2X5A Adverse effect of other opioids, initial encounter; I10 Essential (primary) hypertension; H54.62 Unqualified visual loss, left eye, normal vision right eye; Z79.899 Other long term (current) drug therapy; Z87.891 Personal history of nicotine dependence